=== PATIENT | female | born 1965 | race Caucasian/White ===

== ENCOUNTER → 2021-11-22 19:41 | Outpatient (CLI) | payer MEDICARE, MEDICAID, SELFPAY ==
[2021-11-22 14:30] LABS: Basophils # 0.2 K/mm3 (0-0.2); Basophils % 3.1 % (0.1-2.0); Eosinophils # 0.1 K/mm3 (0.0-0.4); Hematocrit 49.3 % (37.0-47.0); Hemoglobin 15.8 g/dL (12.2-16.2); Lymphocytes # 2.2 K/mm3 (0.7-4.5); Lymphocytes % 27.7 % (10-50); Mean Corpuscular HGB Conc 32.2 g/dL (31.8-35.4); Mean Corpuscular Hemoglobin 31.7 pg (27.0-31.2); Mean Corpuscular Volume 98.6 fl (81-99); Mean Platelet Volume 8.3 fl (7.4-10.4); Monocytes # 0.5 K/mm3 (0.1-1.0); Monocytes % 6.4 % (1.7-9.3); Neutrophils # 4.9 K/mm3 (1.8-7.8); Neutrophils % 61.8 % (37.0-80.0); Platelet Count 440 K/mm3 (142-424); Red Cell Distribution Width 13.7 % (11.5-17.5); White Blood Count 7.9 K/mm3 (4.8-10.8)
[2021-11-22 14:33] LABS: Alanine Aminotransferase 19 U/L (12-78); Albumin Level 4.5 g/dl (3.5-5.0); Albumin/Globulin Ratio 1.7 (1.1-1.8); Alkaline Phosphatase 90 U/L (38-126); Anion Gap 12.1 mEq/L (5-15); Aspartate Amino Transferase 23 U/L (14-36); Bilirubin,Total 0.5 mg/dl (0.2-1.3); Blood Urea Nitrogen 12 mg/dl (7-17); Calcium 10.8 mg/dl (8.4-10.2); Carbon Dioxide 24 mmol/L (22.0-30.0); Chloride 108 mmol/L (98-107); Chol/HDL Ratio 8.2 (1-3.5); Cholesterol 318 mg/dl (140-200); Estimated Glomerular Filt Rate 103 ml/min (>60); GFR (African American) 125 ML/MIN (>60); Globulin 2.7 g/dL (1.3-3.2); Glucose 105 mg/dl (74-100); HDL Cholesterol 39 mg/dl (40-60); Potassium 4.1 mmoL/L (3.5-5.1); Sodium 140 mmol/L (136-145); Total Protein,Serum 7.2 g/dl (6.3-8.2); Triglycerides 191 mg/dl (30-150); VLDL Cholesterol 38 mg/dL (0-40)
[2021-11-22 14:45] LABS: Direct LDL Cholesterol 201.17 mg/dL (100-129)
[2021-11-22 14:50] LABS: 25-OH Vitamin D, Total 17.3 ng/mL (30-100)
[2021-11-22 15:05] LABS: Thyroid Stimulating Hormone 1.64 uIU/mL (0.465-4.68)
== END ==
PROVIDERS: PCP Emergency Medicine; Visit Provider Emergency Medicine
DX: E66.3 Overweight (principal); R53.83 Other fatigue; E55.9 Vitamin D deficiency, unspecified; Z79.899 Other long term (current) drug therapy
CPT/HCPCS: 80053; 80061; 82306; 84439; 84443; 85025

== ENCOUNTER → 2022-01-15 14:27 | Outpatient (CLI) | payer MEDICARE, MEDICAID, SELFPAY ==
[2022-01-15 13:55] LABS: Amphetamine/Metha Screen,Urine Negative ng/ml (<1000)
[2022-01-15 13:56] LABS: Barbiturates Screen,Urine Negative ng/ml (<200)
[2022-01-15 13:57] LABS: Benzodiazepines Screen,Urine Negative ng/ml (<200); Cannabinoid Screen,Urine Negative ng/ml (<50)
[2022-01-15 13:58] LABS: Cocaine Screen,Urine Negative ng/ml (<300)
[2022-01-15 13:59] LABS: Methadone Screen,Urine Negative ng/ml (<300); Opiate Screen,Urine Negative ng/ml (<300)
[2022-01-15 14:00] LABS: Phencyclidine Screen,Urine Negative ng/ml (<25)
== END ==
PROVIDERS: PCP Emergency Medicine; Visit Provider Emergency Medicine
DX: M51.36 Other intervertebral disc degeneration, lumbar region (principal)
CPT/HCPCS: 80305

== ENCOUNTER → 2022-03-26 06:21 | Outpatient (CLI) | payer MEDICARE, MEDICAID, SELFPAY ==
[2022-03-26 18:15] LABS: Amphetamine/Metha Screen,Urine Negative ng/ml (<1000)
[2022-03-26 18:16] LABS: Barbiturates Screen,Urine Negative ng/ml (<200); Benzodiazepines Screen,Urine Negative ng/ml (<200)
[2022-03-26 18:17] LABS: Cannabinoid Screen,Urine Negative ng/ml (<50); Cocaine Screen,Urine Negative ng/ml (<300)
[2022-03-26 18:18] LABS: Methadone Screen,Urine Negative ng/ml (<300)
[2022-03-26 18:19] LABS: Opiate Screen,Urine Positive ng/ml (<300)
[2022-03-26 18:21] LABS: Phencyclidine Screen,Urine Negative ng/ml (<25)
== END ==
PROVIDERS: PCP Emergency Medicine; Visit Provider Emergency Medicine
DX: M51.36 Other intervertebral disc degeneration, lumbar region (principal); Z79.899 Other long term (current) drug therapy
CPT/HCPCS: 80305

== ENCOUNTER 2022-04-24 12:31 | Outpatient (RCR) | payer MEDICARE, MEDICAID, SELFPAY ==
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
== END 2022-04-24 12:35 | disposition home or self-care (01) ==
LOC: PT 12:31
PROVIDERS: PCP Emergency Medicine; Visit Provider Emergency Medicine
DX: M54.2 Cervicalgia (principal)
CPT/HCPCS: 97163

== ENCOUNTER → 2022-07-08 08:45 | Outpatient (CLI) | payer MEDICARE, MEDICAID, SELFPAY ==
[2022-07-08 13:50] LABS: Amphetamine/Metha Screen,Urine Negative ng/ml (<1000); Benzodiazepines Screen,Urine Negative ng/ml (<200)
[2022-07-08 13:51] LABS: Barbiturates Screen,Urine Negative ng/ml (<200)
[2022-07-08 13:52] LABS: Cannabinoid Screen,Urine Negative ng/ml (<50); Cocaine Screen,Urine Negative ng/ml (<300)
[2022-07-08 13:53] LABS: Methadone Screen,Urine Negative ng/ml (<300)
[2022-07-08 13:54] LABS: Opiate Screen,Urine Negative ng/ml (<300); Phencyclidine Screen,Urine Negative ng/ml (<25)
== END ==
PROVIDERS: PCP Emergency Medicine; Visit Provider Emergency Medicine
DX: M51.36 Other intervertebral disc degeneration, lumbar region (principal)
CPT/HCPCS: 80305

== ENCOUNTER → 2022-08-21 09:36 | Outpatient (CLI) | payer MEDICARE, MEDICAID, SELFPAY ==
--- NOTE | 2022-08-21 09:40 | XR_ITS ---
FINAL REPORT CLINICAL HISTORY: knee pain, swelling FINDINGS: Three views of the right knee reveal no evidence of fracture or dislocation. The bony alignment is normal. The joint spaces are preserved. There is no evidence of joint effusion. No localized soft tissue abnormality is identified. IMPRESSION: No acute abnormality identified. Reviewed, Interpreted and Dictated by Brijesh Herrera III, MD Transcribed by Meagan Kasper Authenticated and [facility]
--- NOTE | 2022-08-21 09:40 | XR_ITS ---
FINAL REPORT CLINICAL HISTORY: knee pain, swelling FINDINGS: LEFT KNEE: Three views of the left knee were obtained. There is no acute fracture or dislocation. Visualized joint spaces are normally aligned. There is no joint effusion. Soft tissues are unremarkable. IMPRESSION: No acute bony abnormality. Reviewed, Interpreted and Dictated by Brijesh Herrera III, MD Transcribed by Meagan Kasper Authenticated and [facility]
== END ==
PROVIDERS: PCP Emergency Medicine; Visit Provider Orthopaedic Surgery
DX: M25.562 Pain in left knee (principal); M25.561 Pain in right knee
CPT/HCPCS: 73562

== ENCOUNTER → 2022-09-05 14:33 | Outpatient (CLI) | payer MEDICARE, MEDICAID, SELFPAY ==
[2022-09-05 15:22] LABS: Phencyclidine Screen,Urine Negative ng/ml (<25)
[2022-09-05 15:28] LABS: Amphetamine/Metha Screen,Urine Negative ng/ml (<1000)
[2022-09-05 15:29] LABS: Barbiturates Screen,Urine Negative ng/ml (<200); Benzodiazepines Screen,Urine Negative ng/ml (<200)
[2022-09-05 15:30] LABS: Cannabinoid Screen,Urine Negative ng/ml (<50)
[2022-09-05 15:32] LABS: Opiate Screen,Urine Negative ng/ml (<300)
[2022-09-05 16:08] LABS: Cocaine Screen,Urine Negative ng/ml (<300)
[2022-09-05 16:09] LABS: Methadone Screen,Urine Negative ng/ml (<300)
== END ==
PROVIDERS: PCP Emergency Medicine; Visit Provider Emergency Medicine
DX: M51.36 Other intervertebral disc degeneration, lumbar region (principal)
CPT/HCPCS: 80305

== ENCOUNTER → 2022-09-19 10:39 | Outpatient (CLI) | payer MEDICARE, MEDICAID, SELFPAY ==
--- NOTE | 2022-09-19 10:46 | MR_ITS ---
FINAL REPORT CLINICAL HISTORY: back pain bilateral leg pain FINDINGS: Multiplanar MR imaging of the lumbar spine was performed without contrast. On the sagittal T2-weighted images, there is abnormal decreased signal throughout the lumbar discs. The vertebrae are of normal height. The vertebral alignment is normal. T12-L1: There is no significant canal stenosis or neural foraminal narrowing. L1-2: There is no significant canal stenosis or neural foraminal narrowing. L2-3: There is no significant canal stenosis or neural foraminal narrowing. L3-4: A mild diffuse disc bulge is present with mild bilateral neural foraminal narrowing. L4-5: A mild diffuse disc bulge is present with mild bilateral neural foraminal narrowing. L5-S1: There is no significant canal stenosis or neural foraminal narrowing. IMPRESSION: Mild diffuse disc bulges with mild bilateral neural foraminal narrowing at L3-4 and L4-5. Reviewed, Interpreted and Dictated by Raghav Kenney MD Transcribed by Azalea Garay Authenticated and . [facility]
== END ==
PROVIDERS: PCP Emergency Medicine; Visit Provider Emergency Medicine
DX: M51.36 Other intervertebral disc degeneration, lumbar region (principal); M54.50 Low back pain, unspecified
CPT/HCPCS: 72148; 76376

== ENCOUNTER → 2022-10-09 09:50 | Outpatient (POV) | payer MEDICARE, MEDICAID, SELFPAY ==
--- NOTE | 2022-10-09 10:22 | EXP.PAIN.OV ---
HPI Data of Consult Patient: new to practice Consult date: 10/09/22 Requesting Physician: Merari Diaz APRN Primary Care Provider: Rubio Rojas MD Consult Narrative Reason for consult: Low back pain, leg pain History of present illness: Ms. Guevara is a 57 year old female who presents today as a new patient. She is a referral from Dr. Rojas's office. She rates her pain today a 6 out of 10. Patient states her pain is all in her low back with radiating symptoms into her bilateral lower extremities. Patient states this has been going on for over 20 years and progressively worsened over time. Patient does describe this as a sharp, achy, throbbing sensation that is worse with increased activity. She does states she has limited range of motion and frequently has difficulty performing activities of daily living such as sweeping, mopping, doing the dishes or even laundry. She cannot tolerate prolonged standing, walking due to the pain. She does states she has had injections in the past for her low back and neck pain that did provide significant relief for upwards of 3 to 4 months. Patient states she does take naproxen on a regular basis for additional relief. She states she did not notice significant difference with Tylenol or syro-mog-pgrpzty topicals. She does states she also uses a heating pad that does provide significant relief however only temporary.Patient is currently managed with clonazepam 0.5 mg twice a day, gabapentin 600 mg 3 times a day and Jeremiah 5 mg twice a day from Dr. Rojas's office. Patient denies any side effects from these medications. Her Duane is [id number]. Its been reviewed and appropriate. CC: Merari Diaz APRN [facility] Disclaimer: The information contained in this section may have been updated after the patient was seen, as this information can be updated by other users. Medical History (Updated 10/09/22 @ 10:26 by Merari Diaz APRN) Depression Foraminal stenosis of lumbar region HLD (hyperlipidemia) Social History Smoking Status: Current every day smoker tobacco type: cigarettes packs per day: 1 alcohol intake: never substance use type: denies use current occupational status: disabled Travel in the last 8 weeks: None Review of Systems Review of Systems Review of systems:: pertinent systems reviewed and negative unless documented below Review of systems (narrative): Review of Systems: General: No recent weight changes, no fever, no sleep disturbances Respiratory: No cough, no shortness of air, no recurring pulmonary infections Cardiovascular/peripheral vascular: No chest pain, no palpitations, no edema, no shortness of breath Gastrointestinal: No new onset incontinence, normal bowel movements reported Genitourinary: No new onset incontinence Musculoskeletal: Low back pain, leg pain Psychiatric: [Normal mood/affect] Neurological: [Denies weakness in extremities], [denies balance issues] Meds Home Medications and Allergies Home Medications Medication Instructions Recorded Confirmed Type mecobalamin (vitamin B12) 1,000 1,000 mcg sublingual DAILY 08/28/21 09/05/22 History mcg disintegrating tablet,sublingual fluticasone propionate 50 See Rx Instructions .Route 11/22/21 09/05/22 Rx mcg/actuation nasal .COMPLEX #16 grams spray,suspension cholecalciferol (vitamin D3) 25 25 mcg PO DAILY #90 caps 03/26/22 09/05/22 Rx mcg (1,000 unit) capsule clonazepam 0.5 mg tablet (Klonopin) 0.5 mg PO BID #60 tabs 09/05/22 09/05/22 Rx gabapentin 600 mg tablet 600 mg PO TID #90 tabs 09/05/22 09/05/22 Rx hydrocodone 5 mg-acetaminophen 325 1 tab PO BID PRN pain #60 tabs 09/05/22 09/05/22 Rx mg tablet albuterol sulfate 90 mcg/actuation See Rx Instructions .Route 09/09/22 Rx aerosol inhaler .COMPLEX #8.5 grams atorvastatin 10 mg tablet (Lipitor) 10 mg PO DAILY #90 tabs 09/09/22 Rx cholecalciferol (vitamin D3) 1,250 1,2
[2022-10-09 10:24] VITALS: BP 96/69; PULSE 88; RESP 18; O2SAT 97; BMI 24.1
== END ==
PROVIDERS: PCP Emergency Medicine; Visit Provider Nurse Practitioner Family
DX: M51.16 Intervertebral disc disorders with radiculopathy, lumbar region (principal); M79.604 Pain in right leg; M79.605 Pain in left leg; M48.061 Spinal stenosis, lumbar region without neurogenic claudication
CPT/HCPCS: 99202; G0463

== ENCOUNTER → 2022-11-26 08:56 | Outpatient (POV) | payer MEDICARE, MEDICAID, SELFPAY | PROVIDERS: Visit Provider Specialist/Technologist | DX: Z00.00 Encounter for general adult medical examination without abnormal findings (principal) ==

== ENCOUNTER → 2022-12-26 08:50 | Outpatient (CLI) | payer MEDICARE, MEDICAID, SELFPAY ==
[2022-12-26 15:02] LABS: Alanine Aminotransferase 24 U/L (12-78); Albumin Level 4.3 g/dl (3.5-5.0); Albumin/Globulin Ratio 1.5 (1.1-1.8); Alkaline Phosphatase 98 U/L (38-126); Anion Gap 16.5 mEq/L (5-15); Aspartate Amino Transferase 25 U/L (14-36); Bilirubin,Total 0.4 mg/dl (0.2-1.3); Blood Urea Nitrogen 10 mg/dl (7-17); Calcium 10.3 mg/dl (8.4-10.2); Carbon Dioxide 24 mmol/L (22.0-30.0); Chloride 100 mmol/L (98-107); Chol/HDL Ratio 6.1 (1-3.5); Cholesterol 252 mg/dl (140-200); Estimated Glomerular Filt Rate 103 ml/min (>60); GFR (African American) 125 ML/MIN (>60); Globulin 2.8 g/dL (1.3-3.2); Glucose 98 mg/dl (74-100); HDL Cholesterol 41 mg/dl (40-60); Potassium 4.5 mmoL/L (3.5-5.1); Sodium 136 mmol/L (136-145); Total Protein,Serum 7.1 g/dl (6.3-8.2); Triglycerides 277 mg/dl (30-150); VLDL Cholesterol 55 mg/dL (0-40)
[2022-12-26 15:09] LABS: Basophils # 0.1 K/mm3 (0-0.2); Basophils % 0.8 % (0.1-2.0); Eosinophils # 0.2 K/mm3 (0.0-0.4); Eosinophils % 1.8 % (0.1-12.0); Hematocrit 45.3 % (37.0-47.0); Hemoglobin 14.8 g/dL (12.2-16.2); Lymphocytes # 3.5 K/mm3 (0.7-4.5); Lymphocytes % 39.4 % (10-50); Mean Corpuscular HGB Conc 32.7 g/dL (31.8-35.4); Mean Corpuscular Hemoglobin 32.3 pg (27.0-31.2); Mean Corpuscular Volume 98.9 fl (81-99); Mean Platelet Volume 8.2 fl (7.4-10.4); Monocytes # 0.6 K/mm3 (0.1-1.0); Monocytes % 7.2 % (1.7-9.3); Neutrophils # 4.5 K/mm3 (1.8-7.8); Neutrophils % 50.8 % (37.0-80.0); Platelet Count 396 K/mm3 (142-424); Red Blood Count 4.58 M/mm3 (4.20-5.40); Red Cell Distribution Width 13.3 % (11.5-17.5); White Blood Count 8.8 K/mm3 (4.8-10.8)
[2022-12-26 15:14] LABS: Direct LDL Cholesterol 163.11 mg/dL (100-129)
[2022-12-26 15:18] LABS: 25-OH Vitamin D, Total 63.3 ng/mL (30-100)
[2022-12-26 15:52] LABS: Vitamin B12 293 pg/mL (239-931)
[2022-12-26 17:48] LABS: T4 (Thyroxine) 9.4 ug/dl (5.53-11.0)
== END ==
PROVIDERS: PCP Emergency Medicine; Visit Provider Emergency Medicine
DX: E78.5 Hyperlipidemia, unspecified (principal); F32.A Depression, unspecified; E66.3 Overweight; M81.0 Age-related osteoporosis without current pathological fracture; J44.9 Chronic obstructive pulmonary disease, unspecified; E53.8 Deficiency of other specified B group vitamins; M54.16 Radiculopathy, lumbar region
CPT/HCPCS: 80053; 80061; 82306; 82607; 84436; 84443; 85025

== ENCOUNTER 2023-01-20 10:50 | Emergency (ER) | payer MEDICARE, MEDICAID, SELFPAY ==
[2023-01-20 10:50] VITALS: BP 143/96; PULSE 83; RESP 16; TEMP 36.4; O2SAT 99; BMI 26.6
[2023-01-20 11:00] VITALS: BP 124/88; PULSE 90; O2SAT 97
--- NOTE | 2023-01-20 11:09 | XR_ITS ---
FINAL REPORT CLINICAL HISTORY: fall, rt lower leg pain FINDINGS: Right tibia fibula Two views were obtained. There is no acute fracture or dislocation. The joint spaces appear normal. No soft tissue abnormality is identified. IMPRESSION: No acute process. Reviewed, Interpreted and Dictated by Brijesh Herrera III, MD Transcribed by Lucy Coulter Authenticated and . [facility]
--- NOTE | 2023-01-20 11:09 | CT_ITS ---
FINAL REPORT CLINICAL HISTORY: fall, low back pain FINDINGS: Axial imaging of the lumbar spine was obtained without contrast. Sagittal and coronal reformatted images were also obtained and reviewed.This study was performed with techniques to keep radiation doses as low as reasonably achievable (ALARA). Individualized dose reduction techniques using automated exposure control or adjustment of mA and/or kV according to the patient's size were employed. There is no fracture. The vertebral alignment is normal. There are mild degenerative changes. Multilevel disc bulges and small osteophytes are present. IMPRESSION: Multilevel degenerative change without acute bony abnormality. Reviewed, Interpreted and Dictated by Brijesh Herrera III, MD Transcribed by Lucy Coulter Authenticated and [facility]
--- NOTE | 2023-01-20 11:10 | HMH.EDGENADL ---
Discharge Plan Disposition Patient Disposition: Home, Self-Care Condition: Fair Chief Complaint: Fall Prescriptions Prescriptions: No Action mecobalamin (vitamin B12) 1,000 mcg tablet,disintegrating 1,000 mcg SUBLINGUAL DAILY Rx Instructions: place tablet under tongue and allow to dissolve for at least30 secs before swallowing ipratropium-albuterol 0.5 mg-3 mg(2.5 mg base)/3 mL solution for nebulization 3 ml IH QID PRN (Reason: shortness of breath) Qty: 180 3RF gabapentin 600 mg tablet 600 mg PO TID Qty: 90 1RF clonazepam [Klonopin] 0.5 mg tablet 0.5 mg PO TID Qty: 90 1RF hydrocodone-acetaminophen 5-325 mg tablet 1 tab PO TID PRN (Reason: pain) Qty: 90 0RF albuterol sulfate 90 mcg/actuation HFA aerosol inhaler See Rx Instructions .ROUTE .COMPLEX Qty: 8.5 3RF Rx Instructions: INHALE 2 PUFFS EVERY 8 HOURS NEEDED FOR SHORTNESS OF BREATH OR WHEEZING cholecalciferol (vitamin D3) 1,250 mcg (50,000 unit) capsule 1,250 mcg PO WEEKLY Qty: 14 0RF escitalopram oxalate 20 mg tablet 20 mg PO DAILY Qty: 90 0RF cholecalciferol (vitamin D3) 25 mcg (1,000 unit) capsule 25 mcg PO DAILY Qty: 90 0RF Trelegy Ellipta 100-62.5-25 mcg blister with device See Rx Instructions .ROUTE .COMPLEX Qty: 60 1RF Dose Instruction: INHALE 1 DOSE EVERY DAY Rx Instructions: INHALE 1 DOSE EVERY DAY fluticasone propionate 50 mcg/actuation spray,suspension See Rx Instructions .ROUTE .COMPLEX Qty: 16 1RF Rx Instructions: SPRAY 1 TIME IN EACH NOSTRIL ONCE A DAY tizanidine [Zanaflex] 4 mg capsule 4 mg PO BID Qty: 60 1RF atorvastatin [Lipitor] 10 mg tablet 20 mg PO DAILY Qty: 90 0RF Referrals Follow up/Referrals: Rubio Rojas MD [Primary Care Provider] - See instructions Clinical Impressions Clinical Impression: Low back pain, Contusion of leg, right Instructions Patient Instructions: DI for Chronic Pain -- Adult, How to Prevent Falls Discharge ED Provider: Lam Alvarez General Adult [facility] General Chief complaint: Fall Stated complaint: Fall 6/11 Back pain Time Seen by Provider: 01/20/23 10:53 History of Present Illness HPI narrative: This is a 57-year-old female with chronic back pain who stated that 2 days ago while doing cleaning she tripped and fell down 4 stairs. Patient complaining of low back pain radiating down left leg. Patient also complaining of pain over her right rico. There is no incontinence of stool or urine no saddle paresthesias no gait disturbance patient is already on chronic pain management for her chronic back pain. Related Data Home Medications Medication Instructions Recorded Confirmed mecobalamin (vitamin B12) 1,000 1,000 mcg sublingual DAILY 08/28/21 12/26/22 mcg disintegrating SUPPLIMENT tablet,sublingual Previous Rx's Medication Instructions Recorded albuterol sulfate 90 mcg/actuation See Rx Instructions .Route 10/31/22 aerosol inhaler .COMPLEX Breathing problems #8.5 grams ipratropium 0.5 mg-albuterol 3 mg 3 ml inhalation QID PRN shortness 10/31/22 (2.5 mg base)/3 mL nebulization of breath #180 mL soln clonazepam 0.5 mg tablet (Klonopin) 0.5 mg PO TID NERVES #90 tabs 12/26/22 gabapentin 600 mg tablet 600 mg PO TID Pain #90 tabs 12/26/22 hydrocodone 5 mg-acetaminophen 325 1 tab PO TID PRN pain #90 tabs 12/26/22 mg tablet cholecalciferol (vitamin D3) 1,250 1,250 mcg PO WEEKLY SUPPLIMENT #14 12/29/22 mcg (50,000 unit) capsule caps cholecalciferol (vitamin D3) 25 25 mcg PO DAILY SUPPLIMENT #90 caps 12/29/22 mcg (1,000 unit) capsule escitalopram oxalate 20 mg tablet 20 mg PO DAILY MOOD #90 tabs 12/29/22 fluticasone fur. 100 mcg-umeclid See Rx Instructions .Route 12/29/22 62.5 mcg-vilant 25 mcg .COMPLEX #60 ea inhalat.powder (Trelegy Ellipta) fluticasone propionate 50 See Rx Instructions .Route 12/29/22 mcg/actuation nasal .COMPLEX Breathing problems #16 spray,suspension grams tiza
[2023-01-20 11:30] VITALS: BP 124/83; PULSE 87; O2SAT 98
[2023-01-20 12:00] VITALS: BP 115/86; PULSE 83; O2SAT 97
--- NOTE | 2023-01-20 12:23 | PC.NURSE ---
SPOKE WITH TRAVIS IN RADIOLOGY RE: IMAGING STATUS, IMAGES ARE LOCKED
--- NOTE | 2023-01-20 12:47 | PC.NURSE ---
Rounded on patient, no needs at this time, visitor at bedside.
[2023-01-20 12:54] VITALS: BP 113/86; PULSE 86; RESP 16; TEMP 37; O2SAT 98
== END 2023-01-20 12:57 | disposition home or self-care (01) ==
PROVIDERS: Emergency Provider Emergency Medicine; PCP Emergency Medicine
DX: M54.50 Low back pain, unspecified (principal); S80.11XA Contusion of right lower leg, initial encounter; W10.9XXA Fall (on) (from) unspecified stairs and steps, initial encounter; F32.A Depression, unspecified; E78.5 Hyperlipidemia, unspecified; M48.061 Spinal stenosis, lumbar region without neurogenic claudication
CPT/HCPCS: 72131; 73590; 96372; 99284

== ENCOUNTER 2023-01-22 10:00 | Outpatient (RCR) | payer MEDICARE, MEDICAID, SELFPAY ==
--- NOTE | 2023-01-07 09:56 | HMH.PTOPEV ---
PT Outpatient Evaluation Rehab PT Outpatient Evaluation Start: 01/07/23 09:06 Freq: Status: Active Protocol: Document 01/07/23 09:06 [email or web address] (Rec: 01/07/23 09:56 [email or web address] [id number]) E-signed By Miguel Looney, PT Outpatient Therapy Subjective History Subjective History Pt. is a 57 year old female whom presents to [facility] Outpatient Physical Therapy Services in [place] for the initial evaluation this date( 01/07/23) w/ c/o chronic and constant lumbar and LLE P!, numbness, and spasms of insidious onset that has progressively been getting worse 5 years ago. Pt. vocalizes having a chronic history of LBP! w/ having steroid injections in the past that gave 3 months of symptom relief. Pt. denies any surgeries to the lumbar spine . Pt. 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 Pt. also reports symptoms worsen w/ prolonged sitting and walking. Pt. reports having some symptom relief w/ short sitting after prolonged ambulation, laying down, and alternating MHP/ice at home. Recent diagnostic imaging indicates L4/L5 disc bulging per pt. report. Pt. denies having recent injections for current complaint. Pt. RTMD in February 2023. Current medications include Gabapentin , Hydrocodone, Lipitor, Zanaflex, and Klonopin. PMH includes history of Osteoperosis, Osteoarthritis, S/P hysterectomy, S/P RUE CTS release, COPD, family history of heart disease, and mother's d/t breast cancer. Chief Complaint Pain,Spasms,Stiff,Paresthesia, Weakness Symptom Type Ache,Sharp,Dull,Stabbing,
== END 2023-03-12 15:10 | disposition home or self-care (01) ==
LOC: PT 10:00
PROVIDERS: PCP Emergency Medicine; Visit Provider Emergency Medicine
DX: M54.50 Low back pain, unspecified (principal)
CPT/HCPCS: 97010; 97014; 97110; 97140; 97163; G0283

== ENCOUNTER → 2023-02-23 12:58 | Outpatient (CLI) | payer MEDICARE, MEDICAID, SELFPAY ==
[2023-02-23 12:57] LABS: Amphetamine/Metha Screen,Urine Negative ng/ml (<1000); Barbiturates Screen,Urine Negative ng/ml (<200)
[2023-02-23 12:58] LABS: Benzodiazepines Screen,Urine Negative ng/ml (<200)
[2023-02-23 12:59] LABS: Cannabinoid Screen,Urine Negative ng/ml (<50); Cocaine Screen,Urine Negative ng/ml (<300)
[2023-02-23 13:00] LABS: Methadone Screen,Urine Negative ng/ml (<300)
[2023-02-23 13:01] LABS: Opiate Screen,Urine Positive ng/ml (<300); Phencyclidine Screen,Urine Negative ng/ml (<25)
== END ==
PROVIDERS: PCP Emergency Medicine; Visit Provider Emergency Medicine
DX: M54.16 Radiculopathy, lumbar region (principal); N39.0 Urinary tract infection, site not specified; B96.29 Other Escherichia coli [E. coli] as the cause of diseases classified elsewhere
CPT/HCPCS: 80305; 87086; 87088; 87186

== ENCOUNTER → 2023-05-07 10:55 | Outpatient (CLI) | payer MEDICARE, MEDICAID, SELFPAY ==
--- NOTE | 2023-05-07 10:59 | MM_ITS ---
PROCEDURE INFORMATION: Exam: MG Bilateral Screening 3D Mammography Exam date and time: 05/07/2023 10:52 AM Age: 57 years old Clinical indication: Screening examination TECHNIQUE: Imaging protocol: Bilateral Screening tomosynthesis and 2D mammography including computer-aided detection (CAD) when performed. COMPARISON: No relevant prior studies available. Baseline FINDINGS: MAMMOGRAPHY: Breast composition: The breasts are heterogeneously dense, which may obscure small masses. Mass: None. Architectural distortion: None. Calcifications: No suspicious calcifications. Asymmetric density: None. Skin thickening: None. Axillary adenopathy: None. IMPRESSION: No mammographic evidence of malignancy. Annual screening is recommended unless otherwise clinically indicated. ASSESSMENT: BI-RADS Category 1: Negative
== END ==
PROVIDERS: PCP Emergency Medicine; Visit Provider Family Medicine
DX: Z12.31 Encounter for screening mammogram for malignant neoplasm of breast (principal)
CPT/HCPCS: 77063; 77067

== ENCOUNTER → 2023-05-07 15:53 | Outpatient (CLI) | payer MEDICARE, MEDICAID, SELFPAY ==
[2023-04-24 14:13] LABS: Amphetamine/Metha Screen,Urine Negative ng/ml (<1000)
[2023-04-24 14:14] LABS: Barbiturates Screen,Urine Negative ng/ml (<200); Benzodiazepines Screen,Urine Negative ng/ml (<200)
[2023-04-24 14:15] LABS: Cannabinoid Screen,Urine Negative ng/ml (<50)
[2023-04-24 14:20] LABS: Cocaine Screen,Urine Negative ng/ml (<300)
[2023-04-24 14:21] LABS: Methadone Screen,Urine Negative ng/ml (<300)
[2023-04-24 14:45] LABS: Opiate Screen,Urine Positive ng/ml (<300)
[2023-04-24 14:46] LABS: Phencyclidine Screen,Urine Negative ng/ml (<25)
== END ==
PROVIDERS: PCP Emergency Medicine; Visit Provider Emergency Medicine
DX: N39.0 Urinary tract infection, site not specified; M54.16 Radiculopathy, lumbar region; Z12.31 Encounter for screening mammogram for malignant neoplasm of breast; B96.29 Other Escherichia coli [E. coli] as the cause of diseases classified elsewhere
CPT/HCPCS: 77063; 77067; 80305; 87086

== ENCOUNTER → 2023-06-22 15:57 | Outpatient (CLI) | payer MEDICARE, MEDICAID, SELFPAY ==
[2023-06-22 12:50] LABS: Amphetamine/Metha Screen,Urine Negative ng/ml (<1000); Barbiturates Screen,Urine Negative ng/ml (<200)
[2023-06-22 12:52] LABS: Benzodiazepines Screen,Urine Negative ng/ml (<200)
[2023-06-22 12:53] LABS: Cannabinoid Screen,Urine Negative ng/ml (<50)
[2023-06-22 12:54] LABS: Cocaine Screen,Urine Negative ng/ml (<300); Methadone Screen,Urine Negative ng/ml (<300)
[2023-06-22 12:55] LABS: Opiate Screen,Urine Negative ng/ml (<300)
[2023-06-22 12:56] LABS: Phencyclidine Screen,Urine Negative ng/ml (<25)
== END ==
PROVIDERS: PCP Emergency Medicine; Visit Provider Emergency Medicine
DX: M54.16 Radiculopathy, lumbar region (principal)
CPT/HCPCS: 80305

== ENCOUNTER → 2023-07-13 13:52 | Outpatient (CLI) | payer MEDICARE, MEDICAID, SELFPAY ==
--- NOTE | 2023-07-13 13:54 | CT_ITS ---
FINAL REPORT CLINICAL HISTORY: lung cancer screening current smoker, 1ppd x 41 yrs COMPARISON: None FINDINGS: CT CHEST LOW DOSE SCREENING HISTORY: Screening exam for lung cancer. 61-year-old female, Current smoker, 41 pack year smoking history DOSE: CTDIvol: 2.9 mGy, DLP: 103.16 mGy*cm COMPARISON: None . TECHNIQUE: Axial CT without IV contrast administration using low dose protocol FINDINGS: No acute lung disease is present . Mild changes of emphysema are present, along with mild scarring.. Several calcified granulomas are noted in the lung hernandez bilaterally. There is a 3 mm posterior left upper lobe nodule best seen on image #27. There is another 3 mm posterior left lower lobe nodule best seen on image #43. No pleural or pericardial effusion is seen . No adenopathy or mass lesion is present . IMPRESSION: Two small 3 mm nodules are identified, as described. Mild changes of emphysema and scarring. LUNG RADS CATEGORY 2 RECOMMENDATION: 12 month LDCT follow up Reviewed, Interpreted and Dictated by Brijesh Herrera III, MD Transcribed by Josie Sheehan Authenticated and [facility]
== END ==
PROVIDERS: PCP Physician Assistant; Visit Provider Emergency Medicine
DX: Z87.891 Personal history of nicotine dependence (principal); Z12.2 Encounter for screening for malignant neoplasm of respiratory organs
CPT/HCPCS: 71271

== ENCOUNTER 2023-08-19 12:17 | Outpatient (CLI) | payer MEDICARE, MEDICAID, SELFPAY ==
[2023-08-19 16:27] LABS: Barbiturates Screen,Urine Negative ng/ml (<200); Benzodiazepines Screen,Urine Negative ng/ml (<200); Cannabinoid Screen,Urine Negative ng/ml (<50); Cocaine Screen,Urine Negative ng/ml (<300); Methadone Screen,Urine Negative ng/ml (<300); Opiate Screen,Urine Negative ng/ml (<300); Phencyclidine Screen,Urine Negative ng/ml (<25)
[2023-08-19 17:00] LABS: Amphetamine/Metha Screen,Urine Negative ng/ml (<1000)
== END 2023-08-19 23:59 ==
LOC: LAB.DROPOF 12:18
PROVIDERS: PCP Nurse Practitioner Family; Visit Provider Nurse Practitioner Family
DX: Z79.899 Other long term (current) drug therapy (principal)
CPT/HCPCS: 80307

== ENCOUNTER 2024-03-15 09:00 | Outpatient (RCR) | payer MEDICARE, MEDICAID, SELFPAY ==
--- NOTE | 2024-02-16 10:56 | HMH.PTOPEV ---
PT Outpatient Evaluation Rehab PT Outpatient Evaluation Start: 02/16/24 09:56 Freq: Status: Active Protocol: Document 02/16/24 09:56 [email or web address] (Rec: 02/16/24 10:56 [email or web address] Desktop) E-signed By Miguel Looney, PT Outpatient Therapy Subjective History Subjective History Pt. is a 58 year old female who presents to [facility] Outpatient Physical [place] Services [place] this date (02/16/24) w/ c/o subacute on chronic and constant lumbar and BLE(L>R) P!, numbness and tingling, and locking of insidious onset that has progressively been getting worse since 6 months ago. Pt. reports having a chronic history of lumbar spine and BLE P! secondary to hx. of lumbar spine DDD. Pt. reports currently having some symptom relief w/ prescribed medication, proper shoes, and ice. Pt. will c/o locking in the lumbar spine when she stands back up from a bent over position picking up her laundry basket. Pt. also c/o increasing LBP! w/ prolonged sitting and standing. Pt. reports having to take her time w/ sweeping and mopping the house secondary to an increase in symptomatic P!. Pt . c/o increasing BLE(L>R) pins and needles w/ prolonged standing and walking. Previous diagnostic imaging( MRI 9 months ago per pt. report) indicated DDD and 3 bulging discs per pt. report . Pt. denies having injection to treat history of LBP!. Pt. RTMD 03/05/24. Current medication list includes Gabapentin, [place], Naproxen, Lipitor, B-12, Robaxin, and Clonidine. PMH includes Osteoperosis, Osteoarthritis, DDD, DJD, Hyperlipidemia, BLE radiculopathy, LUE shldr. RC crush injury, spinal ablation , S/P R-sided flank benign tumor excision, partial hysterectomy, PTSD, and family history of breast cancer and aneurysm. New diagnosis of cancer in past 12 No months? Chief Complaint Pain,Spasms,Stiff,Catches/ Locks,Gives out/Unstable, Paresthesia Symptom Type Ache,Sharp,Stabbing,Numbness, Tingling,Shooting Symptoms Relieved By Rest/Positioning,Heat, Prescription Meds Symptoms Aggravated By Supine,Sitting,Standing, Bending/Stooping,Twisting, Walking,Lifting Prior Functional Limitations None Current Functional Limitations Lifting,Housework,Standing, Sitting,Walking,Bending/ Stooping Symptom Description Constant but Variable,Activity Dependent Level of pain today (0-10) 6 Pain scale - at its best (0-10) 3 Pain scale - at its worst (0-10) 9 Lumbopelvic Eval Posture Thoracic Spine Posture Standing Position Neutral Lumbar Spine Posture Standing Position Flexed Assistive device Assistive Devices None / NA Gait Observation General Gait Pattern Observation No Deviations/Normal Palapation tenderness bilateral lumbar spinal tenderness Yes: L1-S1 paraspinal tenderness Yes: B/L L1-S1 LSPS buttock tenderness Yes: B/L piriformis mm. Lumbar/Sacral Palpation Findings Tenderness Lumbar/Sacral Palpation Overall Comment grade 4 +TTP to TTP assessment above Accessory Movement L2 bilateral L3 bilateral L4 bilateral L5 bilateral S1 bilateral Range of Motion Lumbar Spine Active Flexion Range of 31 Motion (degrees) Lumbar Spine Active Extension Range of 7 Motion (degrees) Left Lumbar Spine Lateral Flexion Active 7 Range of Motion (degrees) Right Lumbar Spine Lateral Flexion 8 Active Range of Motion (degrees) Lumbar Spine ROM Limitations Soft Tissue Tightness,Muscle Tone,Pain Manual Muscle Test Bilateral Knee Extension Strength Grade 3+ Fair+ Knee Flexion Strength Grade 3+ Fair+ Hip Flexion Strength Grade 3+ Fair+ Hip Abduction Strength Grade 3+ Fair+ Hip Adduction Strength Grade 3+ Fair+ Hip External Rotation Strength Grade 3+ Fair+ Hip Internal Rotation Strength Grade 3+ Fair+ Hip Extension Strength Grade 4- Good- Gluteus Otto Strength Grade 4- Good- Extensor Hallucis Longus Strength Grade 4 Good Ankle Dorsiflexion Strength Grade 4 Good Gastronemius/Soleus Strength Grade 4 Good DTR Rt Patellar 2+ Lt Patellar 2+ Rt Gastroc/Soleus 2+ Lt Gastroc/Soleus 2+ Altered Sensation Left LE Dermatome Level L4,L5,S1,S2 Comment decreased light touch discrimination in above patterns of LLE compared to RLE Special Tests Lumbar Spine Screen Positive Hip Piriformis Test Positive Left,Positive Right Sciatic Nerve Tension Test Positive Left,Positive Right Unilateral Straight Leg Raise (Lasegue) Positive Left,Positive Right Test Lumbar [place] Distraction Test/Manual Positive Traction Outpatient Therapy Assessment Impairments Problems/Impairmments Palpation Tenderness,Impaired Range of Motion,Impaired Strength,Impaired Walking, Impaired Standing,Impaired Sitting,Impaired Lifting, Impaired Household Care, Impaired Bending,Subjective C/ O Pain,Impaired Self Care/Self Management Prognosis Rehab Potential Good Comment w/ HEP compliancy Clinical Impression Consistent with Diagnosis Yes Consistent with lumbar radiculopathy, L>R Short Term Goals Number of Weeks 2 Decreased Palpation Tenderness Yes: grade 1-2 +TTP to TTP assessment above Decrease Subjective C/O Pain Yes: worse:12/17 Patient to be Ind w/ HEP Yes Furnace Tender Goals Number of Weeks 4-6 Decreased Palpation Tenderness Yes: grade 1 +TTP to TTP assessment above Increase Range of Motion Yes: lumbar spine AROM >85% norms grossly Increase Strength Yes: 4+ to 5/5 BLE MMT scores Increase Ability to Walk Yes Increase Ability to Stand Yes Increase Ability to Sit Yes Restore Ability to Lift Objects to Waist Yes: lifting laundry basket w/ Level o difficulty Improve Ability For Household Care Yes: sweeping/mopping for longer duration w/o difficulty Improve Oswestry Score Yes Decrease Subjective C/O Pain Yes: worse:-10/17 Patient to be Ind w/ Advanced HEP Yes Outpatient Therapy Plan of Care Treatment Plan May Include Therapeutic Exercise Including Home Yes Exercise Program Manual Therapy Techniques Yes Neuromuscular Re-education Yes Therapeutic Activities to Return to Yes Previous Functional/Work Level ADL/Self Care Education Yes Mechanical Traction Yes Thermal Modalities Yes Electrical Stimulation Yes Ultrasound/Phonophoresis Yes Iontophoresis Yes Vasopneumatic Compression Pump Yes Massage Yes Eval/Re-Eval Yes Frequency Times per week 2 Duration Number of Weeks 4-6 Addendums This patient is a candidate for social No or vocational rehab? Patient/Guardian verbally acknowledges Yes understanding of treatment program and consents to further treatment? Patient/Guardian verbally acknowledges Yes understanding of diagnosis, prognosis and goals for treatment? Eval Complexity PT Charges 03584 - Moderate Complexity Shoulder/Elbow Eval Shoulder Objective Measurements Elbow Objective Measurements PHYSICIAN CERTIFICATION: I certify the specified therapy services for Valeri Guevara are required, authorized, and reviewed every 30 days.
== END 2024-03-17 13:50 | disposition home or self-care (01) ==
LOC: PT 09:00
PROVIDERS: Visit Provider Family Medicine
DX: M79.604 Pain in right leg (principal); M79.605 Pain in left leg; M54.16 Radiculopathy, lumbar region
CPT/HCPCS: 97014; 97110; 97140; 97163; G0283

== ENCOUNTER 2024-03-31 10:26 | Outpatient (CLI) | payer MEDICARE, MEDICAID, SELFPAY ==
[2024-03-31 19:51] LABS: Alanine Aminotransferase 21 U/L (12-78); Albumin Level 4.1 g/dl (3.5-5.0); Albumin/Globulin Ratio 1.3 (1.1-1.8); Alkaline Phosphatase 82 U/L (38-126); Anion Gap 10.7 mEq/L (5-15); Aspartate Amino Transferase 20 U/L (14-36); Bilirubin,Indirect 0.5 mg/dL (0.0-0.9); Bilirubin,Total 0.5 mg/dl (0.2-1.3); Bilirubin,Unconjugated 0.5 mg/dL (0.0-1.1); Blood Urea Nitrogen 8 mg/dl (7-17); Calcium 10.7 mg/dl (8.4-10.2); Carbon Dioxide 21 mmol/L (22.0-30.0); Chloride 111 mmol/L (98-107); Chol/HDL Ratio 4.6 (1-3.5); Cholesterol 190 mg/dl (140-200); Estimated Glomerular Filt Rate 127 ml/min (>60); GFR (African American) 153 ML/MIN (>60); Globulin 3.1 g/dL (1.3-3.2); Glucose 97 mg/dl (74-100); HDL Cholesterol 41 mg/dl (40-60); Potassium 4.7 mmoL/L (3.5-5.1); Sodium 138 mmol/L (136-145); Total Protein,Serum 7.2 g/dl (6.3-8.2); Triglycerides 194 mg/dl (30-150); VLDL Cholesterol 39 mg/dL (0-40)
[2024-03-31 20:05] LABS: Direct LDL Cholesterol 102.02 mg/dL (100-129)
== END 2024-03-31 23:59 | disposition home or self-care (01) ==
LOC: LAB.DROPOF 04-01 10:27
PROVIDERS: PCP Family Medicine; Visit Provider Family Medicine
DX: E78.5 Hyperlipidemia, unspecified (principal); E78.1 Pure hyperglyceridemia; Z79.899 Other long term (current) drug therapy; E66.3 Overweight; Z68.27 Body mass index [BMI] 27.0-27.9, adult
CPT/HCPCS: 80053; 80061; 80076

== ENCOUNTER 2024-08-22 11:09 | Outpatient (CLI) | payer MEDICARE, MEDICAID, SELFPAY | END 2024-08-22 23:59 | disposition home or self-care (01) | LOC: RT 11:11 | PROVIDERS: PCP Family Medicine; Visit Provider Family Medicine | DX: R00.0 Tachycardia, unspecified (principal); R00.2 Palpitations | CPT/HCPCS: 93270; 93272 ==

== ENCOUNTER 2024-09-01 10:13 | Outpatient (CLI) | payer MEDICARE, MEDICAID, SELFPAY ==
--- NOTE | 2024-09-01 10:15 | XR_ITS ---
FINAL REPORT CLINICAL HISTORY: neck pain COMPARISON: None FINDINGS: CERVICAL SPINE 5 views were obtained. There is no acute fracture or malalignment. There is minimal anterior osteophyte formation at C5-6. The neural foramina are adequately patent. Facet joints are properly aligned. No significant degenerative changes are present. IMPRESSION: Minimal degenerative change without acute process. Reviewed, Interpreted and Dictated by Raghav Kenney MD Transcribed by Ivette Rueda Authenticated and [facility]
== END 2024-09-01 23:59 | disposition home or self-care (01) ==
LOC: RAD 10:14
PROVIDERS: PCP Family Medicine; Visit Provider Family Medicine
DX: M54.2 Cervicalgia (principal)
CPT/HCPCS: 72050

== ENCOUNTER 2024-09-05 09:09 | Outpatient (CLI) | payer MEDICARE, MEDICAID, SELFPAY ==
--- NOTE | 2024-09-05 09:10 | MR_ITS ---
FINAL REPORT CLINICAL HISTORY: failed PT back pain COMPARISON: 09/19/2022 FINDINGS: Multiplanar MR imaging of the lumbar spine was performed without and with contrast. On the sagittal T2-weighted images, disc degeneration is seen throughout, most severe at the L1-2 level. The vertebral alignment is normal. There is no evidence of fracture. The conus is seen at approximately the L1 level and has an unremarkable appearance. L1-2: An annular bulge is present. No significant canal stenosis or neuroforaminal narrowing is seen. L2-3: An annular bulge is present. No significant canal stenosis or neuroforaminal narrowing is seen. L3-4: A mild annular bulge is present with mild bilateral neural foraminal narrowing. L4-5: A mild annular bulge is present with mild bilateral neural foraminal narrowing. L5-S1: An annular bulge is present. No significant canal stenosis or neuroforaminal narrowing is seen. No abnormal contrast enhancement is identified. IMPRESSION: Mild annular bulges with mild bilateral neural foraminal narrowing at the L3-4 and L4-5 levels, not significantly changed since the prior MRI of 09/19/2022. Reviewed, Interpreted and Dictated by Raghav Kenney MD Transcribed by Josie Sheehan Authenticated and . [facility]
[2024-09-05] MEDS: GADOTERIDOL INJ 20ML SYRINGE 14 ML IV (10:23)
[2024-09-05] MEDS: SODIUM CHLORIDE 0.9% 10ML SYR (RAD ONLY) 10 ML IV (10:23)
== END 2024-09-05 23:59 | disposition home or self-care (01) ==
LOC: RAD 09:10
PROVIDERS: PCP Family Medicine; Visit Provider Family Medicine
DX: M54.2 Cervicalgia (principal); R10.32 Left lower quadrant pain; M79.604 Pain in right leg; M79.605 Pain in left leg; M54.50 Low back pain, unspecified; M48.061 Spinal stenosis, lumbar region without neurogenic claudication; M51.16 Intervertebral disc disorders with radiculopathy, lumbar region
CPT/HCPCS: 72158; A9576

== ENCOUNTER 2024-09-06 13:10 | Outpatient (CLI) | payer MEDICARE, MEDICAID, SELFPAY ==
--- NOTE | 2024-09-06 13:11 | CT_ITS ---
FINAL REPORT TECHNIQUE: Axial images were obtained from the lung apex to the mid abdomen by computed tomography. This study was performed with techniques to keep radiation doses as low as reasonably achievable (ALARA). Individualized dose reduction techniques using automated exposure control or adjustment of mA and/or kV according to the patient's size were employed. CLINICAL HISTORY: lung cancer screening 08/11 ppd x 30 years COMPARISON: 07/13/2023 FINDINGS: CHEST CT LOW DOSE CTDI vol (mGy): 2.90 DLP (mGy-cm): 96.38 There is no axillary adenopathy. There are calcified left hilar lymph nodes. The heart is normal in size. There is no pericardial or pleural effusion. The previously identified nodule in the medial anterior left upper lobe measures 4 mm, stable. Finding is best seen on image 38 of series 4. The previously noted nodule in the periphery of the left upper lobe is not well-seen on today's exam. The previously identified left lower lobe nodule measures 3 mm, best seen on image 45 of series 4. There is a new density in the left upper lobe with spiculated margins measuring 1.5 x 1.5 cm. Finding is best seen on image 46 of series 601 and image 42 of series 4. There is a separate new nodule in the posterior left upper lobe measuring 6 mm well-seen on image 18 of series 4. Limited images of the upper abdomen are unremarkable. IMPRESSION: New left upper lobe nodules, largest measures 1.5 cm. Lung RADS category 4B. Recommend PET/CT. Reviewed, Interpreted and Dictated by Raghav Kenney MD Transcribed by Lucy Coulter Authenticated and [facility]
== END 2024-09-06 23:59 | disposition home or self-care (01) ==
LOC: RAD 13:11
PROVIDERS: PCP Family Medicine; Visit Provider Family Medicine
DX: R91.1 Solitary pulmonary nodule (principal); J43.9 Emphysema, unspecified; Z87.891 Personal history of nicotine dependence
CPT/HCPCS: 71271

== ENCOUNTER 2024-12-16 10:36 | Outpatient (CLI) | payer MEDICARE, SELFPAY ==
[2024-12-16 18:39] LABS: Basophils # 0.1 K/mm3 (0-0.2); Basophils % 0.6 % (0.1-2.0); Eosinophils # 0.1 Kmm3 (0.0-0.4); Eosinophils % 1.3 % (0.1-12.0); Hematocrit 44.9 % (37.0-47.0); Hemoglobin 15.1 g/dL (12.2-16.2); Immature Granulocytes # 0.03 10^3uL; Immature Granulocytes % 0.4 %; Lymphocytes # 2.4 K/mm3 (0.7-4.5); Lymphocytes % 29.6 % (10-50); Mean Corpuscular HGB Conc 33.6 g/dL (31.8-35.4); Mean Corpuscular Hemoglobin 32.5 pg (27.0-31.2); Mean Corpuscular Volume 96.6 fl (81-99); Mean Platelet Volume 9.3 fl (7.4-10.4); Monocytes # 0.6 K/mm3 (0.1-1.0); Monocytes % 7.5 % (1.7-9.3); Neutrophils # 4.9 K/mm3 (1.8-7.8); Neutrophils % 60.6 % (37.0-80.0); Nucleated Red Blood Cells # 0 10^3/uL; Nucleated Red Blood Cells % 0 %; Platelet Count 374 K/mm3 (142-424); Red Blood Count 4.65 M/mm3 (4.20-5.40); Red Cell Distribution Width 13.7 % (11.5-17.5)
[2024-12-16 19:13] LABS: Alanine Aminotransferase 24 U/L (12-78); Alkaline Phosphatase 87 U/L (38-126); Aspartate Amino Transferase 22 U/L (14-36); Bilirubin,Total 0.4 mg/dl (0.2-1.3); Calcium 10.2 mg/dl (8.4-10.2); Chloride 110 mmol/L (98-107); Cholesterol 171 mg/dl (140-200); Glucose 89 mg/dl (74-100); HDL Cholesterol 34 mg/dl (40-60); Potassium 4.4 mmoL/L (3.5-5.1); Sodium 137 mmol/L (136-145); Triglycerides 289 mg/dl (30-150); VLDL Cholesterol 58 mg/dL (0-40)
[2024-12-16 19:15] LABS: Albumin Level 4.1 g/dl (3.5-5.0); Albumin/Globulin Ratio 1.6 (1.1-1.8); Anion Gap 6.4 mEq/L (5-15); Blood Urea Nitrogen 10 mg/dl (7-17); Carbon Dioxide 25 mmol/L (22.0-30.0); Estimated Glomerular Filt Rate 86 ml/min (>60); GFR (African American) 104 ML/MIN (>60); Globulin 2.5 g/dL (1.3-3.2); Total Protein,Serum 6.6 g/dl (6.3-8.2)
[2024-12-16 19:24] LABS: Direct LDL Cholesterol 99.56 mg/dL (100-129)
[2024-12-16 19:27] LABS: 25-OH Vitamin D, Total 32.9 ng/mL (30-100)
[2024-12-16 19:45] LABS: Thyroid Stimulating Hormone 2.45 uIU/mL (0.465-4.68)
[2024-12-16 20:10] LABS: Hemoglobin A1C 5.5 % (4.0-6.0)
== END 2024-12-16 23:59 | disposition home or self-care (01) ==
LOC: LAB.DROPOF 12-19 10:23
PROVIDERS: PCP Family Medicine; Visit Provider Family Medicine
DX: E55.9 Vitamin D deficiency, unspecified (principal); E78.5 Hyperlipidemia, unspecified; R06.09 Other forms of dyspnea; Z13.1 Encounter for screening for diabetes mellitus; Z79.899 Other long term (current) drug therapy
CPT/HCPCS: 80053; 80061; 82306; 83036; 84443; 85025